=== PATIENT | male | born 1940 | race Caucasian/White ===

== ENCOUNTER → 2017-04-13 | Outpatient (CLI) | payer MEDICARE, OTHER ==
[2014-02-09 16:18] VITALS: BMI 31.9
[~2017-04-13] MED LIST: ABIR250T PO; ALBU8.5H IH; ALFU10TA9 PO; AMAN50SY PO; ASPI-879 PO; BICA50TA36 PO; BICA50TA39 PO; CALC-734 PO; CALC200T27 PO; CARB-127 PO; CART1TAB5 PO; CELE100C79 PO; CYAN1TAB68 PO; CYAN500T7 PO; DEN60I SUBQ; ESC10 PO; ESCI10TA8 PO; FLU180SY9 IM; FLU45SYR17 IM; FLUT1DIS28 IH; FLUT1DIS28 INH; FURO-45 PO; GLUC1TAB25 PO; IRON150C19 PO; KRIL1CAP22; KRIL1CAP22 PO; KRIL1CAP4 PO; LEU30I IM ONLY; LEUP3.753 IM; LUTE20CA11 PO; LYCO10CA2 PO; MAGN100T PO; MAGN250T34 PO; MOVE FREE ULTR1 EACH; MULT-1203 PO; MULT-820 PO; PNEI IJ; PNEU0.5D3 IM; PRE5 PO; SOY50CAP PO; ST.300CA17 PO; [UNRECOGNIZED DRUG - OTHER]; [UNRECOGNIZED DRUG - SUPPLY]
--- NOTE | 2017-04-13 11:33 | RADIOLOGY IMAGING REPORT ---
FACILITY: [facility] PATIENT NAME: Wilber Iglesias : 1940 MR: [id number] V: [id number] EXAM DATE: ORDERING PHYSICIAN: CASH BLACKBURN TECHNOLOGIST: Location: [facility] Patient: Wilber Iglesias : 1940 Visit/Account:[id number] Date of Sevice: 04/13/2017 SHOULDER MIN 2 VIEWS RIGHT HISTORY: Right shoulder pain. Fall. COMPARISON: None FINDINGS: Right shoulder: Mildly displaced fracture of the distal clavicle 3 cm from the AC joint. AC joint cruz s not appear involved. Glenohumeral joint is well aligned with moderate degenerative changes. Fractur es of at least the right anterior second and third ribs and posterior fourth and fifth ribs. The fift h rib is also fractured anteriorly. The third-fifth rib fractures are mildly displaced. IMPRESSION: 1. Mildly displaced fracture of the distal right clavicle without extension to the AC joint. 2. Fractures of at least the right second-fifth ribs. The third-fifth rib fractures are mildly displa pj. Please see separate rib x-ray report. Report Dictated By: Shane Hunter MD at 04/13/2017 11:23 AM Report E-Signed By: Shane Hunter MD at 04/13/2017 11:27 AM WSN:[id number]
--- NOTE | 2017-04-13 11:34 | RADIOLOGY IMAGING REPORT ---
FACILITY: [facility] PATIENT NAME: Wilber Iglesias : 1940 MR: [id number] V: [id number] EXAM DATE: ORDERING PHYSICIAN: CASH BLACKBURN TECHNOLOGIST: [place] [facility] [place]: Wilber Iglesias : 1940 Visit/Account:[id number] Date of Sevice: 04/13/2017 RIBS RIGHT HISTORY: right rib pain - trauma COMPARISON: None FINDINGS: Nondisplaced fracture of the anterior right second rib. Mildly displaced fractures of the a nterior right third rib and posterior right fourth and fifth ribs. Nondisplaced fracture of the anter ior right fifth rib. No pneumothorax, pleural effusion or pulmonary contusion. IMPRESSION: 1. Fractures of the right second-fifth ribs with several fractures mildly displaced. No pneumothorax. Report Dictated By: Shane Hunter MD at 04/13/2017 11:27 AM Report E-Signed By: Shane Hunter MD at 04/13/2017 11:30 AM WSN:[id number]
== END ==
LOC: RAD 10:19
PROVIDERS: ATTEND Nurse Practitioner Family
DX: S22.41XA Multiple fractures of ribs, right side, initial encounter for closed fracture (principal); S42.031A Displaced fracture of lateral end of right clavicle, initial encounter for closed fracture
CPT/HCPCS: 71100

== ENCOUNTER 2017-04-16 09:47 | Outpatient (RCR) | payer MEDICARE, OTHER ==
[2014-02-09 16:18] VITALS: Ht 172.7 cm; Wt 78.0 kg
[2017-01-24 11:04] VITALS: BP 116/73
[2017-01-24 11:40] LABS: PLATELET COUNT, AUTOMATED 176 K/uL (150-450)
--- NOTE | 2017-01-24 11:49 | ONC Progress Note - NP.Halsey ---
Patient History Date of Service Jan 24, 2017 Reason For Visit/HPI Patient is seen in the clinic today for follow-up of his metastatic prostate cancer. Patient is seen every 2 months with a PSA typically drawn prior the office visit. This was not done and I will have that drawn today. Patient also follows with Dr. Lobato and continues on Lupron injections. He patient believes he is scheduled next month. Patient continues on Lupron and Casodex and previously has completed Proveng. He continues to follow with Dr. Hunt for his neurological symptoms with a history of Parkinson's. He reports that he is frequently tired and fatigued which requires resting at least twice a day and he is still able to sleep at night. He has generalized aches in the shoulder and his feet. He has pain in his knee from a fall yesterday tripping over the threshold into his house. He did not follow with any provider and reports that he is feeling fine. He does continue with physical therapy at home. He also is the care provider for his . Problem List (1) History of Parkinson's disease (2) Malignant neoplasm of prostate (3) Tardive dyskinesia Oncology History The patient has known metastatic prostate cancer to bone. He was originally diagnosed in February of 2005 with Sarbjit 8 poorly differentiated malignancy and was given six months of Lupron with external beam radiation therapy at a dose of 7560 cGy. He developed bone metastases in 2009 and received palliation with radiation to the spine at 3750 cGy. He tolerated this well. He then was controlled with Lupron and Casodex starting in 2009. He developed an elevation of his PSA in July of 2015 and was started on Zytiga and prednisone. His PSA edita to 9 and then leveled off. It increased then in the summer of 2015 to 12.2 and he completed three treatments of Provenge. He continues on the Lupron and the Casodex. PSA continues to slowly rise and was at 16.4 on 01/10/2017, 14.10 on 12/12/2016 , and 12.9 on 10/17/2016. Medical History Family History: Cancer of spinal cord MOTHER, , Age:79 FH: leukemia BROTHER OR SISTER (Sister), , Age:30 Gout FATHER, , Age:83 Psychosocial History Social History Patient is and is the care provider of his Alcohol History Patient denies use Smoking History: Yes Smoking Status: Former Smoker Exposure to Second Hand Smoke?: No Medications and Allergies Active Scripts Escitalopram Oxalate (LEXAPRO) 10 Mg Tab, 1 TAB PO QDAY, #90 TAB 3 Refills Prov:MAN GAUTAM MD 05/01/16 Fluticasone/Salmeterol (ADVAIR 250-50 DISKUS) 1 Each Disk.w.dev, 1 PUFF INH BID , #3 DISK 3 Refills Prov:CASH BLACKBURN APRN 04/12/16 Albuterol Sulfate 90 Mcg/Act (PROAIR HFA 90 MCG/ACT) 8.5 Gm Hfa.aer.ad, 2 PUFF IH QID Y for WHEEZING, #1 INHALER 1 Refill Prov:CASH BLACKBURN APRN 01/12/16 [oxygen concetrator] No Conflict Check Prov:CASH BLACKBURN APRN 12/14/15 Reported Medications Cartilage/Collagen/Bor/Hyalur (Joint Health Tablet) 40 Mg-10 Mg-5 Mg-3.3 Mg Tablet, 40 MG PO DAILY 08/21/16 Iron Polysaccharides Complex (POLYSACCHARIDE IRON 150) 150 Mg Capsule, 27 MG PO DAILY, CAPSULE 08/21/16 Carbidopa/Levodopa (CARBIDOPA-LEVO 25-100 MG ODT) 1 Each Tab.rapdis, 1 EACH PO Q4-6H 06/27/16 Denosumab (PROLIA) 60 Mg/1 Ml Injs, 60 MG SUBQ DIRECTED 04/11/16 Leuprolide Acetate (LUPRON DEPOT) 3.75 Mg Syringekit, 3.75 MG IM DIRECTED 04/11/16 Lycopene (LYCOPENE) 10 Mg Capsule, 10 MG PO DAILY, CAPSULE 01/24/16 Bicalutamide (CASODEX) 50 Mg Tablet, 50 MG PO DAILY 01/24/16 Krill/Om-3/Dha/Epa/Phospho/Ast (Megared Lindsay-3 Krill Oil Sfgl) 1 Each Capsule, 1 CAPSULE PO QDAY 09/22/15 Multivitamin With Minerals (ONE DAILY COMPLETE) 1 Each Tablet, 1 EACH PO QDAY 09/22/15 Magnesium Oxide (MAGNESIUM) 250 Mg Tablet, 250 MG PO QDAY 09/22/15 Lutein (LUTEIN) 20 Mg Capsule, 20 MG PO QDAY, CAPSULE 09/22/15 Calcium Citrate (CALCIUM CITRATE) 200 Mg Tablet, 630 MG PO DAILY 08/25/15 Alfuzosin Hcl (ALFUZOSIN HCL) 10 Mg Tab.er.24h, 1 TAB PO QDAY, TAB 01/13/14 Allergies: Coded Allergies: No Known Drug Allergies (Unverified , 09/22/15) Review of System/Physical Exam Review of Systems All Systems Reviewed/Normal: Yes, Except as Noted Constitutional: Denies Fever/Chills/Sweating (no fever or chills noted with a cough that started 10 days ago.) Respiratory: Positive for Cough (reports a mild cough with symptoms starting approximately 10 days ago and is resolving.) Hematologic: Positive for Fatigue, Positive for Weakness Musculoskeletal: Positive for Muscle Pain, Positive for Joint Pain, Positive for Bone Pain, Positive for Other (generalized fatigue and noted bilateral hand tremors) Physical Exam Vital Signs Temperature: 97.1 Pulse: 86 BP Systolic: 116 BP Diastolic: 73 Respiratory Rate: 16 O2 SAT: 87 O2 Delivery: Room Air Height (inches) 68.00 Weight lb: 171 Weight oz: 6.0 Weight Kg (Alfredo): 77.56 Pain: 3 ECOG Score: 2 General: Stable, Well Developed, Well Nourished, Not In Acute Distress HEENT: No Trauma, No Conjunctivitis, No Icterus, No Mucositis, No Oral Thrush, No Sinus Tenderness Neck: Supple Lungs: Clear to Auscultation Heart: Regular Rate, Regular Rhythm Abdomen: Soft and Nontender, No Hepatosplenomegaly, No Masses Extremities: No Cyanosis, No Clubbing, No Edema, Other (bilateral hand tremors and finger pill-rolling with a history of Parkinson's) Lymphadenopathy: No Cervical Psychiatric: Mood appears normal, Affect appears normal Skin: No Skin Rashes, Bruising (small bruised area on his right knee, mild tenderness with palpation, patient experienced a fall yesterday) Diagnostic Studies Diagnostic Studies Laboratory CBC, CMP and PSA will be drawn today and are currently pending Assessment and Plan Assessment & Plan Patient is a pleasant 76-year-old gentleman with the followin. Metastatic prostate cancer on Provenge, Lupron and Casodex. He has finished the Provenge x 3 with a small response in his PSA, previously on 08/15 PSA was 10.7, and then increased to 12.9 on 10/17/2016, 14.10 on 2016, and 16.4 on 01/10/2017. Patient is scheduled to follow with Dr. Lobato later this month or in February and is due for Lupron. We will continue to monitor PSA. Patient is asymptomatic regarding any bone pain other then what is been normal for him. Recent bone scan was reviewed and reported to be without evidence of disease. There are no new concerns other then continued rising PSA. It is known that Provenge may take up to 6 or 8 months to respond. As long as patient continues to be asymptomatic and his other lab values are essentially unremarkable we will continue to monitor every 2 months with a PSA, CBC and a CMP. There is no need for further evaluation with a CT scan at this time but would be indicated if chemistry panel was abnormal . Labs are pending today. Patient will be notified with results. Patient will follow with Dr. Carballo in March which as previously scheduled with PSA, CBC and CMP drawn prior. 2. Chronic osteoarthritis. 3. Parkinsonism with tardive dyskinesia. Patient is following with Neurology. I personally spent a total of 20 minutes. Of that 20 minutes was counseling/ coordination of patient's care. See my note above for details. Copies to: CSAH BLACKBURN APRNP-C DREA MEYERP-BC, ONC Jan 24, 2017 11:49
[2017-02-13 10:04] LABS: PLATELET COUNT, AUTOMATED 171 K/uL (150-450)
[2017-03-13 10:07] VITALS: BP 75/75
[2017-03-13 10:12] LABS: PLATELET COUNT, AUTOMATED 191 K/uL (150-450)
[2017-03-26 11:02] VITALS: BP 115/67
--- NOTE | 2017-03-30 22:36 | ONCOLOGY FOLLOW UP NOTE ---
EVENT DATE: 03/26/2017 CHIEF COMPLAINT/REASON FOR VISIT Mr. Iglesias is a pleasant 76-year-old gentleman with metastatic prostate cancer, currently on Lupron and Casodex, previously on Provenge. HISTORY OF PRESENT ILLNESS Wilber returns. Overall he is doing well with a very slight and slow increase in his PSA. This is expected after Provenge considering the benefit with Provenge is extending survival intervals and slowing rate of change. He has been on Zytiga in the past and we could consider switching to enzalutamide in the future. He is not interested in chemotherapy and we discussed this in detail today including our options for chemotherapy. His biggest complaint today is a fall that he suffered. He does not believe he hit his head. This was approximately 48 hours ago. He fell on his right hand and right shoulder without hitting his head. He feels that his shoes got caught by something, leading him to fall. He does have known Parkinson's disease and continues to take carbidopa/levodopa for this. We discussed getting imaging, but he declines this as well. We have made an agreement that if he continues to have pain within one week he should call his primary care provider, and he agrees with this. No other new issues today. No new bone pain. We had imaging back in December and would like to get some new imaging in the spring. ONCOLOGY HISTORY The patient has known metastatic prostate cancer to bone. He was originally diagnosed in February of 2005 with Florence 8 poorly differentiated malignancy and was given six months of Lupron with external beam radiation therapy at a dose of 7560 cGy. He developed bone metastases in 2009 and received palliation with radiation to the spine at 3750 cGy. He tolerated this well. He then was controlled with Lupron and Casodex starting in 2009. He developed an elevation of his PSA in July of 2015 and was started on Zytiga and prednisone. His PSA edita to 9 and then leveled off. It increased then in the summer of 2015 to 12.2 and we made the decision in the fall to add Provenge. He completed his three treatments. He continues on the Lupron and the Casodex. PAST MEDICAL HISTORY 1. Metastatic prostate cancer. 2. Parkinsonism. 3. Tardive dyskinesia. 4. Osteoarthritis. SOCIAL HISTORY The patient is . He has one adult daughter here in [place]. FAMILY HISTORY Remarkable for sibling who from leukemia. REVIEW OF SYSTEMS CONSTITUTIONAL: No fevers, chills, weight change. HEENT: No headache or vision changes. NEUROLOGIC: Positive changes of parkinsonism. He does have a significant tremor. CARDIOVASCULAR: No chest pain, dyspnea on exertion or edema. RESPIRATORY: No shortness of breath, wheeze, cough. GASTROINTESTINAL: No nausea, vomiting. He had some nausea and vomiting with the Provenge, but this has resolved. GENITOURINARY: No dysuria or hematuria. MUSCULOSKELETAL: Positive generalized weakness, but no focal weakness. He does have arthralgias. Positive right hand and shoulder pain after the fall. Declines exam of this. ENDOCRINE: No heat or cold intolerance. PSYCHIATRIC: No anxiety or depression. SKIN: No bruising or rashes. The remainder of the 14-point review of systems is otherwise negative. PHYSICAL EXAMINATION VITAL SIGNS: Blood pressure 116/67, pulse 86, respiratory rate 16, temperature 97.1 Fahrenheit, oxygen saturation 90% on room air, weight 78 kg. Pain 6/10 due to the fall, fatigue 6/10 due to the fall. GENERAL: In stable condition, resting comfortably in the chair. The patient is guarding his right shoulder and refuses exam. It does appear to be in the joint and I do not believe he dislocated it. I think the most likely outcome is that he has injured his rotator cuff considering his symptoms are consistent with a supraspinatus strain on the right side,but cannot be definitive as the patient refuses exam. CARDIOVASCULAR: Regular rate and rhythm. LUNGS: Clear. ABDOMEN: Soft, nontender. MUSCULOSKELETAL: Chronic changes of tardive dyskinesia with significant tremor , about the same as previous visits and improved now that he is back on carbidopa/levodopa. EXTREMITIES: Without clubbing, cyanosis or edema. SKIN: Scattered bruises and lesions. He does have bruising of his right hand. The remainder of the physical exam is unremarkable. IMPRESSION AND PLAN Wilber is a very pleasant 76-year-old gentleman with the followin. Metastatic prostate cancer, having finished Provenge, currently on Lupron and Casodex. He has been on Zytiga in the past. I do not feel he is a candidate for chemotherapy, and he would decline it anyway after discussion today. His PSA is slowly rising with a low doubling time. Thus we will continue his current plan. We could utilize enzalutamide in the future if desired. I do think he is getting some benefit from the Provenge. I also believe that he will eventually succumb to his disease at some point, but we are trying to slow its rate of change. Would like to get imaging in the new year. 2. Chronic osteoarthritis. 3. Parkinsonism with tardive dyskinesia. 4. Recent fall. Patient agrees to seek medical care if the pain continues one week from now. Answered all of his questions today. Billing: Return visit level 4. Total time 30 minutes, counseling time 20. MTDD
[~2017-04-16] VITALS: Ht 172.7 cm; Wt 78.0 kg
[2017-04-16 10:05] LABS: PLATELET COUNT, AUTOMATED 209 K/uL (150-450)
== END 2017-04-23 ==
LOC: SPU 09:47
PROVIDERS: ATTEND Internal Medicine
DX: Z85.46 Personal history of malignant neoplasm of prostate (principal); Z85.830 Personal history of malignant neoplasm of bone; M19.90 Unspecified osteoarthritis, unspecified site; G20 Parkinson's disease; G24.01 Drug induced subacute dyskinesia; Z87.891 Personal history of nicotine dependence; Z79.899 Other long term (current) drug therapy; R53.83 Other fatigue; R53.1 Weakness; R05 Cough
CPT/HCPCS: 36415; 84153; 84402; 84403; 84443; 85025; G0463; 82040; 82247; 82310; 82374; 82435; 82565; 82947; 84075; 84132; 84155; 84295; 84450; 84460; 84520; 99212

== ENCOUNTER 2017-05-31 10:30 | Outpatient (RCR) | payer MEDICARE, OTHER ==
[2014-02-09 16:18] VITALS: BMI 31.9
--- NOTE | 2017-04-25 15:23 | PT INITIAL EVALUATION ---
MEDICAL DIAGNOSIS: R distal clavicle fx, R scapula fx of body and tip, rib fracture (anterior 2nd and 3rd and posterior 4th and 5) TREATMENT DIAGNOSIS: Same DATE OF ONSET: 04/01/17 SUBJECTIVE: Wilber Iglesias presents to physical therapy status post R distal clavicle fx, R scapular fx of body and tip, and rib fractures (anterior 2nd and 3rd and posterior 4th and 5) resulting from a fall prior to . He reports that he fell on his R side resulting in all of these fractures. He reports that his mobility over the years has been getting worse due to Parkinson and prostate cancer. He rates his current R side pain to be 3-4/10. He reports that the pain is better with lying down on his back or anything warm placed on the spots that are painful. He reports that the pain becomes worse with movement and anything cold over the points of pain. He reports that is currently having difficulty with dressing driving, and personal hygiene as a result of these injuries. Pain location is distal clavicle, posterior ribs and anterior ribs and described as . Pain scale is 4 on a ten point pain scale. REHAB PROBLEM LIST: Increased Pain Decreased ROM Decreased Strength Decreased Endurance Decreased Balance Decreased Function Decreased ADL's Decreased Mobility Decreased Gait PREVIOUS MEDICAL HISTORY: See EMR OCCUPATION: Retired OBJECTIVE: Posture: He demonstrated forward head, increased rounded shoulders, increased thoracic kyphosis, and decreased lumbar lordosis. ROM: PROM of R shoulder: flexion: 90 deg, IR: 65 deg, ER: 20 deg, abduction: 90 deg. Painful in all direction: empty end feels PROM of L shoulder: flexion: 170 deg, abduction: 145 deg, IR: 90 deg, ER: 65 deg. Strength: Did not test due to recent fractures Palpation: TTP: distal clavicle, anterior 2nd and 3rd ribs, and posterior 3-4th ribs. ASSESSMENT: Wilber will benefit from skilled physical therapy addressing the listed impairments to improve function and QOL. Short Term Goals 3 weeks: Pt will demonstrate full PROM with R shoulder in all directions as compared to his PROM of his L shoulder in all directions to improve function and QOL. 6 weeks: Pt will demonstrated full AAROM-AROM with R shoulder in all directions as compared to his PROM of his L shoulder in all directions to improve function and QOL. 6 weeks: Pt will demonstrate 4/5 or greater with R RTC and periscapular musculature to improve function and QOL. Patient's Goals improve range of motion and decrease pain PLAN: Patient to be seen for Manual Therapy/STM/MET Strengthening/condition Ice/Heat Range of Motion Spinal Stabilization Work Hardening/Cond Stretching Neuromuscular Re-ed Closed Chain Program Electrical Stim Posture/Body mechanics Gait Trg/Balance Trg Home Exercise Program Therapeutic Activities 2x/Week for 6 Weeks If you have any questions, comments, or concerns about this report or plan, please contact me at . Thank you, Grupo Buenrostro, PT, DPT MTDD
--- NOTE | 2017-05-25 17:23 | PT PLAN OF CARE ---
Physician: Steve Nicole MD Patient is being seen: 2x/week Therapist: Grupo Buenrostro, PT, DPT Medical Diagnosis: R distal clavicle fx, R scapula fx of body and tip, rib fracture (anterior 2nd/3rd and posterior 4th and 5th Treatment Diagnosis: Same Date of Onset: 04/01/17 Date of Initial Evaluation: 04/24/17 Date patient was last seen: 05/24/17 Number of treatments: 10 Number of cancellations/No shows: 0 INTERVENTIONS: Manual Therapy/STM/MET Strengthening/condition Ice/Heat Range of Motion Spinal Stabilization Work Hardening/Cond Stretching Neuromuscular Re-ed Closed Chain Program Electrical Stim Posture/Body mechanics Gait Trg/Balance Trg Home Exercise Program Therapeutic Activities GOALS: 3 weeks: Pt will demonstrate full PROM with R shoulder in all directions as compared to his PROM of his L shoulder in all directions to improve function and QOL. Progressing; not met 6 weeks: Pt will demonstrated full AAROM-AROM with R shoulder in all directions as compared to his PROM of his L shoulder in all directions to improve function and QOL. Progressing; not met 6 weeks: Pt will demonstrate 4/5 or greater with R RTC and periscapular musculature to improve function and QOL. Progressing; not met PATIENT'S GOAL: improve range of motion and decrease pain: progressing; not met Status of Patient's Goals: Not Met; progressing Patient Compliance: Good Prognosis: Good Reasons for continuing therapy: This is a progress note for Wilber Iglesias. Wilber reports that he is doing well. He reports that he feels like his R shoulder is getting better and is able to do more with it than he could a few weeks ago. He rates his pain to be 1-2/10. He is progressing with improved R shoulder PROM-AROM, however, he continues to have empty end feels in all directions. We would like to continue PT to continue to improve PROM-AROM and then improve strength to return him to prior level of function. Posture: He demonstrated forward head, increased rounded shoulders, increased thoracic kyphosis, and decreased lumbar lordosis. ROM: PROM of R shoulder: scaption: 110 degrees, flexion: 110 deg, IR: 90 deg, ER : 55 deg, abduction: 105 deg. Painful in all direction: empty end feels PROM of L shoulder: flexion: 170 deg, abduction: 145 deg, IR: 90 deg, ER: 65 deg. Strength: Did not test due to recent fractures Palpation: TTP: distal clavicle, anterior 2nd and 3rd ribs, and posterior 3-4th ribs. Mobility: Independent If you have any questions, please contact me at [phone]. Thank you, Grupo Buenrostro, PT, DPT MTDD
[~2017-05-31 10:30] MED LIST changes: +AMA100 PO
--- NOTE | 2017-05-31 14:16 | PT PLAN OF CARE ---
Physician: Steve Nicole MD Patient is being seen: 2x/week Therapist: Grupo Buenrostro, PT, DPT Medical Diagnosis: R distal clavicle fx, R scapula fx of body and tip, rib fracture (anterior Treatment Diagnosis: Same Date of Onset: 04/01/17 Date of Initial Evaluation: 04/24/17 Date patient was last seen: 05/31/17 Number of treatments: 12 Number of cancellations/No shows: 0 INTERVENTIONS: Manual Therapy/STM/MET Strengthening/condition Ice/Heat Range of Motion Spinal Stabilization Work Hardening/Cond Stretching Neuromuscular Re-ed Closed Chain Program Electrical Stim Posture/Body mechanics Gait Trg/Balance Trg Home Exercise Program Therapeutic Activities GOALS: 3 weeks: Pt will demonstrate full PROM with R shoulder in all directions as compared to his PROM of his L shoulder in all directions to improve function and QOL. Progressing; not met 6 weeks: Pt will demonstrated full AAROM-AROM with R shoulder in all directions as compared to his PROM of his L shoulder in all directions to improve function and QOL. Progressing; not met 6 weeks: Pt will demonstrate 4/5 or greater with R RTC and periscapular musculature to improve function and QOL. Progressing; not met PATIENT'S GOAL: improve range of motion and decrease pain: progressing; not met Status of Patient's Goals: Not Met; progressing Patient Compliance: Good Prognosis: Good Reasons for continuing therapy: This is a discharge note for Wilber Iglesias. Wilber reports that he is doing well. He reports that he feels like his R shoulder is getting better and is able to do more with it than he could a few weeks ago. He rates his pain to be 1-2/10. He is progressing with improved R shoulder PROM-AROM, however, he continues to have empty end feels in all directions. We would like to continue PT to continue to improve PROM-AROM and then improve strength to return him to prior level of function. However, he reports that he would like to perform his recovery of function at home with his current home exercise program. He demonstrates independence with his home exercise program. As a result, he will be discharged from formal PT to [facility]. Posture: He demonstrated forward head, increased rounded shoulders, increased thoracic kyphosis, and decreased lumbar lordosis. ROM: PROM of R shoulder: scaption: 120 degrees, flexion: 120 deg, IR: 90 deg, ER : 55 deg, abduction: 110 deg. Painful in all direction: empty end feels PROM of L shoulder: flexion: 170 deg, abduction: 145 deg, IR: 90 deg, ER: 65 deg. Strength: Did not test due to recent fractures Palpation: TTP: distal clavicle, anterior 2nd and 3rd ribs, and posterior 3-4th ribs. Mobility: Independent If you have any questions, please contact me at [phone]. Thank you, Grupo Buenrostro, PT, DPT MTDD
== END 2017-05-31 18:00 | disposition home or self-care (01) ==
LOC: PT 10:30
PROVIDERS: ATTEND Orthopaedic Surgery
DX: S82.031A Displaced transverse fracture of right patella, initial encounter for closed fracture (principal); S42.111A Displaced fracture of body of scapula, right shoulder, initial encounter for closed fracture; S22.41XA Multiple fractures of ribs, right side, initial encounter for closed fracture; G20 Parkinson's disease; C61 Malignant neoplasm of prostate; W19.XXXA Unspecified fall, initial encounter
CPT/HCPCS: 97010; 97110; 97140; 97163; G0283

== ENCOUNTER 2017-06-11 10:24 | Outpatient (RCR) | payer MEDICARE, OTHER ==
[2014-02-09 16:18] VITALS: Wt 75.6 kg
[2017-06-04 11:24] LABS: PLATELET COUNT, AUTOMATED 198 K/uL (150-450)
--- NOTE | 2017-06-07 11:38 | RADIOLOGY IMAGING REPORT ---
FACILITY: [facility] [place] PATIENT NAME: Wilber Iglesias : 1940 MR: [id number] V: [id number] EXAM DATE: ORDERING PHYSICIAN: MAN GAUTAM TECHNOLOGIST: Location: [facility] Patient: Wilber Iglesias : 1940 Visit/Account:[id number] Date of Sevice: 06/07/2017 CHEST/AB/PELV W/WO CONTRAST HISTORY: Prostate cancer ADDITIONAL HISTORY: None. TECHNIQUE: Pre and post administration of IV contrast axial images acquired through the chest abdome n and pelvis during the portal venous phase. Coronal and sagittal reformatting was also performed. D ose Lowering Technique One of the following dose optimization techniques was utilized in the performance of this exam: Autom ated exposure control; adjustment of the mA and/or kV according to the patient's size; or use of an i terative reconstruction technique. Specific details can be referenced in the facility's radiology C T exam operational policy. CONTRAST: 75 mL Isovue-370 COMPARISON: CTA chest September 22, [address] abdomen pelvis August 01, 2011 FINDINGS: CHEST: Lungs/Pleura: Small amount of airspace consolidation in the lateral left lower lobe Mediastinum/lymph nodes: Negative. Heart/vessels: There are mild calcifications within the thoracic aorta and branch vessels including the coronary arteries Bones/soft tissues: No aggressive appearing bone lesions are seen. There are marked severe degenera tive changes of the right shoulder joint. There is a sclerotic density in the right femoral neck sta ble when compared to the prior study from 2011 ABDOMEN AND PELVIS: Hepatobiliary: There are postsurgical changes from a cholecystectomy. There appears to been a parti al hepatic resection Spleen: Negative. Pancreas: Negative. Adrenals: Negative. Kidneys ureters and bladder: There is a 5 mm nonobstructing calculus mid pole the right kidney the pr eviously noted 2.1 cm cortical hyperdensity with adjacent peripheral calcification projecting from th e lateral aspect of the upper pole the left kidney appears smaller. The bladder wall is mildly thick ened Genitalia: Prostate gland is mildly enlarged impinging upon the floor the urinary bladder and appears heterogeneous GI: There is diverticulosis left-sided colon although no CT evidence of acute diverticulitis Vessels/spaces/nodes: Mild to moderate vascular calcifications about the chest abdomen pelvis and br anch vessels Bones/soft tissues: There are spondylotic changes of the thoracolumbar spine. This sclerotic densit y in the right femoral neck appears stable Additional findings: None pertinent. IMPRESSION: There is a small amount of airspace consolidation the lower left lateral thorax which may represent a n area of scarring or atelectasis. There is been a partial hepatic resection Postsurgical changes from a cholecystectomy Nonobstructing right-sided nephrolithiasis Left renal cyst appears smaller Bladder wall is mildly thickened the prostate gland is mildly enlarged impinging upon the floor the u rinary bladder appears heterogeneous. Diverticulosis left-sided colon although no CT evidence of acute diverticulitis Report Dictated By: Elzbieta Gordon MD at 06/07/2017 10:24 AM Report E-Signed By: Elzbieta Gordon MD at 06/07/2017 11:34 AM WSN:[email or web address]
--- NOTE | 2017-06-07 14:33 | RADIOLOGY IMAGING REPORT ---
FACILITY: [facility] PATIENT NAME: Wilber Iglesias : 1940 MR: [id number] V: [id number] EXAM DATE: ORDERING PHYSICIAN: MAN GAUTAM TECHNOLOGIST: Location: [facility] Patient: Wilber Iglesias : 1940 Visit/Account:[id number] Date of Sevice: 06/07/2017 WHOLE BODY BONE SCAN HISTORY: Prostate cancer TECHNIQUE: 23.9 mCi technetium 99m HDP was injected intravenously. Delayed anterior and posterior wh ole body gamma camera images were obtained. Additional gamma camera images: Right and left lateral skull COMPARISON: December 12, 2016 FINDINGS: Bone radiotracer activity: There is increased isotope uptake along the anterior aspect of numerous r ight-sided ribs consistent with the clinical history of recent trauma. Degenerative type uptake is a lso noted at the right shoulder which is slightly increased over the distal right clavicle which coul d be related to the recent trauma. Degenerative type uptake also noted at the knees and feet right s ternoclavicular joint and wrists. Degenerative uptake also noted in the cervical spine and thoracic spine similar to the prior examination Extraosseous radiotracer activity: Unremarkable. Renal and urinary collecting system activity: Unremarkable. IMPRESSION: Increased isotope uptake over numerous anterior right-sided ribs and the distal right clavicle consis tent with the clinical history of recent trauma Multifocal areas of degenerative type uptake noted as described above No scintigraphic evidence of osseous metastases Report Dictated By: Elzbieta Gordon MD at 06/07/2017 2:25 PM Report E-Signed By: Elzbieta Gordon MD at 06/07/2017 2:28 PM WSN:[email or web address]
[~2017-06-11 10:24] MED LIST changes: +IOPAMIDOL 76% 75 ML INFUS BTL 75 ML ONE
[2017-06-11 10:25] VITALS: BP 123/74
--- NOTE | 2017-06-13 06:01 | [facility] ONCOLOGY NOTE ---
EVENT DATE: June 11, 2017 CHIEF COMPLAINT/REASON FOR VISIT The patient is a pleasant 76-year-old gentleman with metastatic prostate cancer , currently on Lupron and Casodex, previously on Provenge, here for followup. HISTORY OF PRESENT ILLNESS The patient returns. Overall he is doing well. We have a very slow rise in his PSA in general, although it went down in the last month. This is expected after Provenge, considering the benefit with this extends survival, but over time. He has been on Zytiga in the past, and we could consider enzalutamide in the future. He is not interested in chemotherapy, and I agree with this. Our biggest issue today is his continued falls. He had a fall when I saw him back in March, and then at least two this year as well, including one requiring an ER visit. We discussed assisted living, but he feels that he has adequate help with his daughter and two other hired helpers. They are not there 30/10, of course. He blames his fall due to him rushing and his Parkinson' s disease. He continues to take his carbidopa/levodopa for the Parkinson's. No other new issues today. No new pain other than pain from the fall. We had imaging back in December and would likely get imaging now as needed. His imaging scan on June 07, 2017 showed trauma as well as metastatic disease, but no significant change. ONCOLOGY HISTORY The patient has known metastatic prostate cancer to bone. He was originally diagnosed in February of 2005 with Sarbjit 8 poorly differentiated malignancy and was given six months of Lupron with external beam radiation therapy at a dose of 7560 cGy. He developed bone metastases in 2009 and received palliation with radiation to the spine at 3750 cGy. He tolerated this well. He then was controlled with Lupron and Casodex starting in 2009. He developed an elevation of his PSA in July of 2015 and was started on Zytiga and prednisone. His PSA edita to 9 and then leveled off. It increased then in the summer of 2015 to 12.2 and we made the decision in the fall to add Provenge. He completed his three treatments. He continues on the Lupron and the Casodex. PAST MEDICAL HISTORY 1. Prostate cancer, metastatic. 2. Parkinsonism. 3. Tardive dyskinesia. 4. Osteoarthritis. SOCIAL HISTORY The patient is and has presented by himself today. He has one adult daughter here in [place]. FAMILY HISTORY Remarkable for a sibling who from leukemia, otherwise negative. REVIEW OF SYSTEMS CONSTITUTIONAL: No fevers, chills, significant weight change. HEENT: No headache or vision changes. NEUROLOGIC: Positive changes of Parkinson's with a resting tremor. CARDIOVASCULAR: No chest pain, dyspnea on exertion or edema. RESPIRATORY: No shortness of breath, wheeze, cough. GASTROINTESTINAL: No nausea, vomiting, diarrhea or constipation. GENITOURINARY: No dysuria or hematuria. MUSCULOSKELETAL: No weakness or joint pain. PSYCHIATRIC: No anxiety or depression. ENDOCRINE: No heat or cold intolerance. The remainder of the 14-point review of systems is otherwise negative. PHYSICAL EXAMINATION VITAL SIGNS: Blood pressure 123/74, pulse 83, respiratory rate 16, temperature 96.5 Fahrenheit, oxygen saturation 90% on room air, weight 75.6 kg. Pain 0/10, fatigue 5/10. GENERAL: Stable condition, resting comfortably in the chair. T HEENT: Normocephalic, atraumatic. MUSCULOSKELETAL: Patient has pain in his right shoulder where he had the recent fall. He had pain in his shoulder two months ago as well after a similar fall. CARDIOVASCULAR: Regular rate and rhythm. LUNGS: Clear. ABDOMEN: Soft, nontender. EXTREMITIES: No clubbing, cyanosis or edema. NEUROLOGIC: Patient does have the tremor as well as tardive dyskinesia, better than it was when he was off the carbidopa/levodopa. Remainder of physical exam otherwise unremarkable. IMPRESSION AND PLAN Wilber is a very pleasant 76-year-old gentleman with the followin. Metastatic prostate cancer, having finished Provenge, currently on Lupron and Casodex. He has been on Zytiga in the past. I do not feel he is a candidate for chemotherapy, and he would decline it anyway. His PSA has a very slow doubling time on this current therapy. We could utilize enzalutamide in the future if needed, and I do think he is still getting some benefit from the Provenge. Imaging done now, and we will get it only as needed. 2. Chronic osteoarthritis. 3. Parkinsonism with tardive dyskinesia on carbidopa/levodopa. 4. Recent falls. I had a detailed discussion today about my concerns with his falls. We discussed an assisted living, but he would not like to pursue this. Billing: Return visit level 4. Total time 30 minutes, counseling time 20. MTDD
[2017-06-26] MEDS ORDERED: CHOL10005 PO (16:44)
[2017-07-18] MEDS ORDERED: CELE100C79 PO (16:30)
[2017-07-27] MEDS ORDERED: SINCR502 PO (09:44)
[2017-07-27] MEDS ORDERED: CELE100C79 PO (09:47)
[2017-07-27] MEDS ORDERED: FLUT1DIS28 INH (09:47)
== END 2017-08-30 ==
LOC: ONC 10:24
PROVIDERS: ATTEND Internal Medicine
DX: C61 Malignant neoplasm of prostate (principal); C79.51 Secondary malignant neoplasm of bone; M19.90 Unspecified osteoarthritis, unspecified site; G20 Parkinson's disease
CPT/HCPCS: 36415; 84153; 85025; G0463; 71270; 72194; 74170; 74178; 78306; 82040; 82247; 82310; 82374; 82435; 82565; 82947; 84075; 84132; 84155; 84295; 84450; 84460; 84520; 99212; A9503; Q9967

== ENCOUNTER 2017-06-26 13:21 | Outpatient (RCR) | payer MEDICARE, OTHER ==
[2014-02-09 16:18] VITALS: BMI 31.9
[~2017-06-26 13:21] MED LIST changes: -IOPAMIDOL 76% 75 ML INFUS BTL 75 ML ONE
[2017-06-26] MEDS ORDERED: CHOL10005 PO (16:44)
== END 2017-06-28 14:49 | disposition home or self-care (01) ==
LOC: RAON 13:21
PROVIDERS: ATTEND Radiology Radiation Oncology
DX: C61 Malignant neoplasm of prostate (principal); C79.51 Secondary malignant neoplasm of bone; Z92.3 Personal history of irradiation; Z79.899 Other long term (current) drug therapy; Z87.891 Personal history of nicotine dependence
CPT/HCPCS: 99212

== ENCOUNTER → 2017-08-30 | Outpatient (CLI) | payer MEDICARE, OTHER ==
[2014-02-09 16:18] VITALS: BMI 31.9
[~2017-08-30] MED LIST changes: +CHOL10005 PO; +SINCR502 PO
[2017-08-30 10:57] LABS: PLATELET COUNT, AUTOMATED 188 K/uL (150-450)
[2017-08-30 11:21] LABS: LDL CHOLESTEROL 59 mg/dl
== END ==
LOC: LAB 10:19
PROVIDERS: ATTEND Nurse Practitioner Family
DX: E78.5 Hyperlipidemia, unspecified (principal); G20 Parkinson's disease; M81.0 Age-related osteoporosis without current pathological fracture
CPT/HCPCS: 36415; 82040; 82247; 82306; 82310; 82374; 82435; 82465; 82565; 82947; 83718; 84075; 84132; 84155; 84295; 84443; 84450; 84460; 84478; 84520; 85025

== ENCOUNTER 2018-01-15 15:00 | Outpatient (RCR) | payer MEDICARE, OTHER ==
[2014-02-09 16:18] VITALS: BMI 31.9
[~2018-01-15 15:00] MED LIST changes: +BICA50TA13 PO; -BICA50TA36 PO; -BICA50TA39 PO; +BICA50TA41 PO; +ENZA40CA PO
[2018-04-08] MEDS ORDERED: CELE100C79 PO (12:03)
[2018-04-15] MEDS ORDERED: PRED-1 PO (10:48)
[2018-04-15] MEDS ORDERED: ESC10 PO (10:58)
== END 2018-04-14 ==
LOC: RAON 15:00
PROVIDERS: ATTEND Radiology Radiation Oncology
DX: Z85.46 Personal history of malignant neoplasm of prostate (principal); Z85.830 Personal history of malignant neoplasm of bone; Z92.3 Personal history of irradiation; Z79.899 Other long term (current) drug therapy
CPT/HCPCS: 99212

== ENCOUNTER 2018-02-14 10:00 | Outpatient (RCR) | payer MEDICARE, OTHER ==
[2014-02-09 16:18] VITALS: Wt 68.8 kg
--- NOTE | 2018-01-01 21:51 | Pharmacy Note ---
Pharmacy Note Note: Clinical Pharmacist Note: Oral Chemotherapy Education Visit Date: 01/01/18 Chemotherapy Regimen: Enzalutamide (Xtandi) Patient Start Date: 12/25/17 This regimen includes: Enzalutamide 160mg (4 x 40mg capsules) po daily until progression or toxicity The schedule of treatment administration was explained in detail to the patient in regards to lab visits, timing and proper administration of oral chemotherapy. Pt was taking 4 capsules per day, but 1 capsule every three hours. Educated on proper administration of chemotherapy as one dose (4 capsules) once per day. Discussed lab frequency and potential need for dose adjustments. Patient's diagnosis, treatment plan, and intent of treatment along with goals a re outlined on the signed consent form, that was reviewed and signed at the end of this appointment. The goal is palliative/maintenance (without cure). The potential for drug/drug interaction and drug/food interactions were explained to the patient. Enzalutamide has many drug interactions and the patient was instructed to report any new medications to the office. A medication reconciliation was reviewed by the pharmacist today. We have also discussed the potential for long and short term toxicities of this oral chemotherapy including, but not limited to the toxicities outlined below: -Low WBCs or neutropenia (15%): Patient may experience bone marrow toxicity that would increase their risk for infection. Patient is aware to look for signs and symptoms of infection (e.g. fever of higher than 100.4F, chills, sore throat, etc.) and knows what number to call and when to contact the clinic. Advised patient of things they can do such as wash hands with soap and water often, avoid people who are sick, and avoid crowds during times of low blood counts (typically 7-10 days post chemotherapy). -Low platelet counts or thrombocytopenia (6%): Patient may experience low platelets which can lead to increased risk of bleeding, easy bruising, black or bloody stools, or small red or purple spots on the skin. Platelets help blood to clot and if your platelets are low enough, bleeding may not stop after a few minutes. Excessive bleeding or bruising, red spots on your skin or new onset headaches require a phone call to the clinic. - Fatigue (feeling tired): Some patients may experience fatigue, or feel tired, weak, low energy, drained or exhausted. You will experience fatigue after chemotherapy, but the amounts for each person and chemotherapy will differ. Advised patient to stay active as much as they can with light exercise, take short naps if needed, get a restful night of sleep, and eat a well-balanced diet. Call the clinic if you are unable to get out of bed or do typical daily activities, have shortness of breath, or have trouble walking small distances. -Nausea or vomiting: May experience some level of nausea (feeling queasy or si ck to your stomach) or vomiting. Advised patient to drink plenty of fluids, eat several small meals throughout the day, eat bland easy to digest foods, and speak to our social work therapist if they have questions. Call the clinic if the nausea or vomiting is not eased by your medications and lasts 12 hours or longer, or if unable to eat or drink, or keep medicines down. - Appetite changes (eating less or more): You may experience a decrease or increase in your appetite that might last a day, weeks or months. Advised patient to set a schedule for eating and drink high protein drinks to maintain calories. Ask your doctor or nurse for a social work therapist consult to help manage your appetite changes or if you have concerns about your appetite changes. Contact the clinic if you notice a change in weight and if you are unable to take in more than a few bites of food or sips of liquid at mealtimes. Favorite foods may also taste different or may not be pleasing. -Arthralgias/ musculoskeletal pain: Patient may experience joint pains and aching in arms and legs, some patients report back pain. Instructed to contact our clinic if these symptoms become intolerable. -Cardiac Toxicities: Patient may experience Hypertension, ischemic heart disease and may increase risk of cardiovascular disease. Monitor for signs and symptoms of ischemic heart disease and increased blood pressure. -Fractures: Falls and fractures have occurred in patients receiving enzalutamide. The incidence of falls and fractures was higher in patients who r eceived enzalutamide. Routine assessment of bone density and osteoporosis treatment with bone-modifying agents were not performed in studies. Evaluate fall and fracture risk. Monitor and manage fracture risk according to established treatment guidelines; consider the use of bone-modifying agents to prevent falls and fractures. - Seizures: Seizures were observed in patients on enzalutamide from 13 days to 20 months after starting treatment. Patient informed of seizure risk and medications reviewed for drugs that lower the seizure threshold. -Other Toxicities: Edema, hot flashes, weight loss, diarrhea, constipation, and nausea Patient was given the Standard Chemotherapy Education Binder with appropriate phone numbers and we reviewed symptoms that would prompt a call to the clinic. Upcoming appointments were discussed and patient knows to follow up at the front of house manager to get print outs of their schedule and the processes to change/cancel an appointment. Consent was reviewed with the patient and signed in my presence. The treating physician will review and sign the consent. Allergies were reviewed: NKDA At the end of this discussion, the patient and his verbalized understanding of the provided education and information and all of their questions were answered to their satisfaction. Patient and his know how to reach me if further questions or concerns come up. Time spent with the patient: 60 minutes, with all60 minutes being spent counseling on the detailed information above. Lainey Cleveland, PharmD, [facility] Jan 01, 2018 21:51
[2018-01-09 10:32] VITALS: BP 100/65
[2018-01-09 10:46] LABS: PLATELET COUNT, AUTOMATED 195 K/uL (150-450)
[2018-01-14 10:31] VITALS: BP 115/71
--- NOTE | 2018-01-15 16:01 | ONCOLOGY FOLLOW UP NOTE ---
EVENT DATE: January 14, 2018 CHIEF COMPLAINT/REASON FOR VISIT Mr. Iglesias is a pleasant, 77-year-old gentleman with metastatic prostate cancer, currently on Lupron, Casodex, and enzalutamide with previous treatment on Provenge, who is here for followup. HISTORY OF PRESENT ILLNESS Wilber returns. Overall, he is doing well, but his Parkinson disease and multiple falls continue to be an issue. I stressed to him that he needs to use his cane more frequently. He is rarely using it. For example, it is in the car today. He has had multiple falls since the last visit in November. I think this is the most pressing issue for him. He is tolerating the first week of enzalutamide without major issue. He was recommended to start in November, but did not begin until early January 2018. He is to continue the Lupron and Casodex. Sees Dr. Lobato with Urology regularly and has followup later this month. Other than increased tinnitus, he notes no increased side effects. Multiple side effects listed for this medication Mr Iglesias already has, but he has seen no worsening of them to date. It has only been one week, though. Will continue to follow him every four to six weeks on this new therapy right now. Will check his PSA at that time, too. The patient also continues to note increased nocturia and approximately eight to 10 voiding episodes during the day. He may benefit from Dr. Lobato's evaluation later this month to consider medication or procedure to open up the prostate to allow better urinary drainage. I defer completely to Dr. Lobato on that. ONCOLOGY HISTORY The patient has known metastatic prostate cancer to bone. He was originally diagnosed in February 2005 with Sarbjit 8 poorly differentiated malignancy and was given six months of Lupron with external beam radiation therapy at a dose of 7560 cGy. He developed bone metastases in 2009 and received palliation with radiation to the spine at 3750 cGy. He tolerated this well. He then was controlled with Lupron and Casodex starting in 2009. He developed an elevation of his PSA in July 2015 and was started on Zytiga and prednisone. His PSA edita to 9 and then leveled off. It increased then in the summer of 2015 to 12.2, and we made the decision in the fall to add Provenge. He completed his three treatments. He continues on the Lupron and the Casodex. Decision to add Xtandi November 2017. PAST MEDICAL HISTORY 1. Prostate cancer, metastatic. 2. Parkinsonism. 3. Tardive dyskinesia. 4. Osteoarthritis. SOCIAL HISTORY The patient is and has presented by himself today. He has one adult daughter here in [place]. FAMILY HISTORY Remarkable for a sibling who from leukemia, otherwise negative. REVIEW OF SYSTEMS CONSTITUTIONAL: No fevers, chills, significant weight change. Multiple falls, unfortunately, believed to be related to Parkinson's. No increase since starting enzalutamide. HEENT: No headache or vision changes. SKIN: The patient does have some bruising noted, mostly on the right side including on his hand. NEUROLOGIC: Positive changes of Parkinson's with a resting tremor. CARDIOVASCULAR: No chest pain, dyspnea on exertion, or edema. RESPIRATORY: No shortness of breath, wheeze, cough. GASTROINTESTINAL: No nausea, vomiting. GENITOURINARY: No dysuria. Positive nocturia and multiple episodes during the day of frequent voiding. No hematuria. MUSCULOSKELETAL: Positive right shoulder fracture in March 2017 with a repeat fall in the summer of 2017. He states that this has been x-rayed and is not healing normally, though will be observed. PSYCHIATRIC: No anxiety or depression. ENDOCRINE: No heat or cold intolerance. Remainder of the 14-point review of systems otherwise negative. PHYSICAL EXAMINATION VITAL SIGNS: Blood pressure 115/71, pulse 84, respiratory rate 16, temperature 97.3 Fahrenheit, oxygen saturation 90% on room air, weight 68.8 kg. Pain zero/10. Fatigue 3/10. GENERAL: Stable condition, resting comfortably in the chair. HEENT: Normocephalic, atraumatic. MUSCULOSKELETAL: Patient has right shoulder pain and some frozen shoulder effect. He has fallen multiple times on that. Does not have his cane with him today, and I stressed the importance of having it. CARDIOVASCULAR: Regular rate and rhythm. LUNGS: Clear. ABDOMEN: Soft, nontender. EXTREMITIES: No clubbing, cyanosis, or edema. NEUROLOGIC: He does continue to have tardive dyskinesia as well as a resting tremor. Remainder of physical exam otherwise unremarkable. IMPRESSION AND PLAN Mr. Iglesias is a pleasant 77-year-old gentleman with the followin. Metastatic prostate cancer, having finished Provenge, currently on Lupron, Casodex, and enzalutamide. He has been on Zytiga in the past. He is not a candidate for chemotherapy and stresses that he would decline it anyway. His PSA, fortunately, has a very slow doubling time, although it is up to 30, and that is why we added the enzalutamide. He has taken it for one week with minimal side effects. He believes his tinnitus has been slightly worse, but this is tolerable. I believe the benefits outweigh the risks, and we will continue. 2. Chronic osteoarthritis. 3. Parkinsonism, on carbidopa/levodopa. Should continue. 4. Recent falls. Stressed the importance of using his cane regularly. He states that he will do this. He is the primary caregiver of his , and I worry that if he has more falls, he may have a major event or not be able to stay at home. I answered all of his questions today. BILLING Return visit level 4. Total time 30 minutes, counseling time 20. MTDD
[2018-02-11 09:49] VITALS: BP 100/68
[2018-02-11 10:12] LABS: PLATELET COUNT, AUTOMATED 216 K/uL (150-450)
[~2018-02-14 10:00] MED LIST changes: +INFLUENZA VIRUS VAC 0.5ML SYR IM ONLY ONE
[2018-02-14 10:09] VITALS: BP 111/72
--- NOTE | 2018-02-16 19:31 | ONCOLOGY FOLLOW UP NOTE ---
EVENT DATE: February 14, 2018 CHIEF COMPLAINT Followup for metastatic prostate cancer. HISTORY OF PRESENT ILLNESS Patient is a 77-year-old male who was seen today in one month followup for metastatic prostate cancer. He has an extensive history and has received multiple treatments but currently is on Lupron, Casodex and enzalutamide. Enzalutamide was added on January 14, 2018 due to an increased PSA. Overall, he is doing fairly well. He does complain of some urinary frequency and dribbling. He has diarrhea alternating with constipation, more on the diarrhea side. He has had recent falls but admits to not using his cane routinely. He denies any specific dizziness. He fell several days ago and has a bruised right elbow with skin tear. He also has decreased range of motion in his right shoulder. He has a followup appointment with Dr. Lobato next week for his Lupron injection. He is managing fairly well. His is also somewhat ill but he has a deliverer pharmacy that comes to their home four days a week and a "ranch girl" two days a week. He received a flu vaccine in January 2018. ONCOLOGY HISTORY The patient has known metastatic prostate cancer to bone. He was originally diagnosed in February 2005 with [place] 8 poorly differentiated malignancy and was given six months of Lupron with external beam radiation therapy at a dose of 7560 cGy. He developed bone metastases in 2009 and received palliation with radiation to the spine at 3750 cGy. He tolerated this well. He then was controlled with Lupron and Casodex starting in 2009. He developed an elevation of his PSA in July 2015 and was started on Zytiga and prednisone. His PSA edita to 9 and then leveled off. It increased then in the summer of 2015 to 12.2, and Provenge was added in the fall of 2015. He completed his three treatments. He continues on Lupron and the Casodex. Xtandi was added on January 14, 2018 due to increasing PSA. PAST MEDICAL HISTORY 1. Prostate cancer, metastatic. 2. Parkinsonism. 3. Tardive dyskinesia. 4. Osteoarthritis. SOCIAL HISTORY The patient is and has presented by himself today. He has one adult daughter here in [place]. FAMILY HISTORY Remarkable for a sibling who from leukemia, otherwise negative. MEDICATIONS 1. Enzalutamide 40 mg four capsules daily. 2. Advair. 3. Carbidopa/levodopa. 4. Vitamin D3. 5. Lexapro 10 mg daily. 6. Joint Health tablet. 7. Lupron under the direction of Dr. Lobato. 8. Casodex 50 mg daily. 9. Mag Oxide. ALLERGIES No known drug allergies. REVIEW OF SYSTEMS A 12-point review of systems is performed and is negative except as stated above. PHYSICAL EXAMINATION VITAL SIGNS: Weight 68.8 kg, BP 111/72, P 84, R 16, temperature 97.4, O2 sat 94%. GENERAL: Patient is a well-developed, slightly frail, elderly male in acute distress. HEENT: Atraumatic, normocephalic. Eyes: Sclerae, anicteric. Mouth: Moist mucous membranes without lesion. NECK: Supple. No adenopathy. LUNGS: Clear bilaterally. CARDIOVASCULAR: Heart rate regular, 84 per minute without murmur, S3 or S4. ABDOMEN: Soft, nontender with active bowel sounds. EXTREMITIES: No pedal edema. He does have decreased range of motion in his right shoulder. SKIN: Bruising noted on forearms with a skin tear on the right elbow after recent fall. NEUROLOGIC: Nonfocal. LABORATORY CBC on February 11, 2018 showed a WBC of 4.6, hemoglobin 13.6, hematocrit 40.1, platelets 216,000. CMP was within normal limits. PSA has decreased from 31.1 in January to 22.4 today. IMPRESSION AND PLAN The patient is a 77-year-old male being followed for metastatic prostate cancer. 1. Metastatic prostate cancer. He completed therapy with Provenge. He is currently on Lupron, Casodex and recently started enzalutamide. Thankfully, PSA has decreased from 31.1 to 22.4. He will continue current treatment. 2. Follow up with Dr. Lobato next week for Lupron. 3. Recent falls. He is not using his cane routinely and we discussed the importance of this. He had a recent fall and bruised his right elbow with a skin tear. He feels he is doing fairly well. He denies any dizziness which could be associated with the enzalutamide. 4. Osteoarthritis, chronic. 5. Parkinsonism,. He continued on carbidopa/levodopa. 6. Follow up for lab on April 11, 2018. Follow up with Dr. Hidalgo on April 15, 2018 or earlier if there is a problem. [facility]
[2018-04-08] MEDS ORDERED: CELE100C79 PO (12:03)
== END 2018-04-09 ==
LOC: ONC 10:00
PROVIDERS: ATTEND Internal Medicine
DX: C61 Malignant neoplasm of prostate (principal); C79.51 Secondary malignant neoplasm of bone; Z23 Encounter for immunization; M19.90 Unspecified osteoarthritis, unspecified site; G20 Parkinson's disease; R29.6 Repeated falls
CPT/HCPCS: 36415; 84153; 85025; 90471; G0463; Q2037; 82040; 82247; 82310; 82374; 82435; 82565; 82947; 84075; 84132; 84155; 84295; 84450; 84460; 84520; 90674; 99212

== ENCOUNTER → 2018-05-28 | Outpatient (CLI) | payer MEDICARE, OTHER ==
[2014-02-09 16:18] VITALS: BMI 31.9
[~2018-05-28] MED LIST changes: -INFLUENZA VIRUS VAC 0.5ML SYR IM ONLY ONE; +PRED-1 PO
--- NOTE | 2018-05-28 13:46 | RADIOLOGY IMAGING REPORT ---
FACILITY: [facility] PATIENT NAME: Wilber Iglesias : 1940 MR: [id number] V: [id number] EXAM DATE: ORDERING PHYSICIAN: MAN GAUTAM TECHNOLOGIST: [place] [facility] [place] Patient: Wilber Iglesias : 1940 Visit/Account:[id number] Date of Sevice: 05/28/2018 NM BONE SCAN COMPLETE HISTORY: Prostate cancer COMPARISON: 06/07/2017. TECHNIQUE: 24.9 mCi technetium 99m MDP was injected intravenously. Delayed anterior and posterior wh ole body gamma camera images were obtained. Additional gamma camera images: Additional images obtained through the neck. FINDINGS: Bone radiotracer activity: Prior uptake at multiple adjacent right ribs has resolved. Decreasing up take at the right distal clavicle. New focus of uptake at the left inferior pubic ramus. There are 2 foci of uptake at the right knee, one of which is new. Extraosseous radiotracer activity: Normal Renal and urinary collecting system activity: Normal. IMPRESSION: 1. New focus of uptake within the left inferior pubic ramus. Metastatic disease not excluded. Phil mmend MRI with and without contrast for further evaluation. 2. There is one new focus of uptake at the right knee which could be degenerative or metastatic. Re commend x-ray as an initial step. 3. Prior uptake at multiple adjacent right ribs has resolved. Decreasing uptake at the distal right clavicle. Both these findings are likely posttraumatic. Report Dictated By: Shane Hunter MD at 05/28/2018 1:27 PM Report E-Signed By: Shane Hunter MD at 05/28/2018 1:32 PM WSN:[id number]
== END ==
LOC: RAD 00:45
PROVIDERS: ATTEND Internal Medicine
DX: C61 Malignant neoplasm of prostate (principal)
CPT/HCPCS: 78306; A9503

== ENCOUNTER 2018-06-04 09:47 | Outpatient (RCR) | payer MEDICARE, OTHER ==
[2014-02-09 16:18] VITALS: Wt 66.5 kg
[2018-04-11 10:18] VITALS: BP 112/69
[2018-04-11 10:24] LABS: PLATELET COUNT, AUTOMATED 172 K/uL (150-450)
[2018-04-15 10:20] VITALS: BP 118/73
--- NOTE | 2018-04-16 03:43 | SCHUST[facility] ONCOLOGY NOTE ---
EVENT DATE: April 15, 2018 CHIEF COMPLAINT/REASON FOR VISIT Mr. Iglesias is a very pleasant 77-year-old gentleman here for followup with metastatic prostate cancer, complaining of right shoulder pain and continued Parkinson disease. HISTORY OF PRESENT ILLNESS Wilber returns. He is seen for his near-monthly followup for metastatic prostate cancer. His oncology history is outlined below, and he has received multiple treatments. Enzalutamide was added on January 14, 2018, due to an increased PSA. His PSA has improved from 32 down to 20 with this therapy after three months, which is excellent. In the past, he has had some issues with diarrhea and constipation as well as urinary issues, but he does not complain of these today. He has not had any falls this month, but did in the fall, when he was not using his cane regularly. He had a fall and injury to his right shoulder, and that is likely the source of his pain; however, given his prostate cancer, I would like to get an x-ray. It has been a year since his last imaging, and we plan to get imaging of the shoulder, and then we would like to get a bone scan in approximately three months as well. His continues to be ill, and he has two helpers including a hospital pharmacy technician and a nearby girl from a ranch that are helping him on a near-daily basis. He feels that he is maintaining okay right now. ONCOLOGY HISTORY The patient has known metastatic prostate cancer to bone. He was originally diagnosed in February 2005 with [place] 8 poorly differentiated malignancy and was given six months of Lupron with external beam radiation therapy at a dose of 7560 cGy. He developed bone metastases in 2009 and received palliation with radiation to the spine at 3750 cGy. He tolerated this well. He then was controlled with Lupron and Casodex starting in 2009. He developed an elevation of his PSA in July 2015 and was started on Zytiga and prednisone. His PSA edita to 9 and then leveled off. It increased then in the summer of 2015 to 12.2, and Provenge was added in the fall of 2015. He completed his three treatments. He continues on Lupron and the Casodex. Xtandi was added on January 14, 2018 due to increasing PSA. PAST MEDICAL HISTORY 1. Prostate cancer, metastatic. 2. Parkinsonism. 3. Tardive dyskinesia. 4. Osteoarthritis. SOCIAL HISTORY The patient is and has presented by himself today. He has one adult daughter here in [place]. FAMILY HISTORY Remarkable for a sibling who from leukemia, otherwise negative. MEDICATIONS 1. Enzalutamide 40 mg four capsules daily. 2. Advair. 3. Carbidopa/levodopa. 4. Vitamin D3. 5. Lexapro 10 mg daily. 6. Joint Health tablet. 7. Lupron under the direction of Dr. Lobato. 8. Casodex 50 mg daily. 9. Magnesium oxide. ALLERGIES No known drug allergies. REVIEW OF SYSTEMS CONSTITUTIONAL: No fevers, chills, or significant weight change. HEENT: No headache or vision changes. CARDIOVASCULAR: No chest pain, dyspnea on exertion, or edema. RESPIRATORY: No shortness of breath, wheeze, or cough. GASTROINTESTINAL: Positive constipation and diarrhea alternating. GENITOURINARY: He does have some urinary issues, but these are stable currently. Follows with Dr. Lobato. ENDOCRINE: No heat or cold intolerance. PSYCHIATRIC: No anxiety or depression. SKIN: No concerning findings. NEUROLOGIC: Positive Parkinson disease and tremor. Remainder of 14-point review of systems otherwise negative. PHYSICAL EXAMINATION VITAL SIGNS: Blood pressure 118/73, pulse 93, respiratory rate 16, oxygen saturation 95% on room air. Weight 67.4 kg. Pain 2/10, fatigue 3/10. GENERAL: Stable condition, resting comfortably in the chair. HEENT: Normocephalic, atraumatic. CARDIOVASCULAR: Regular rate and rhythm. LUNGS: Clear. ABDOMEN: Soft and nontender. No masses. EXTREMITIES: Without clubbing, cyanosis, or edema. MUSCULOSKELETAL: Limited range of motion of the right shoulder. Did not do full physical exam due to prior trauma and known fracture. No change in his exam. Remainder of physical exam otherwise unremarkable. IMPRESSION/REPORT/PLAN Mr. Iglesias is a pleasant 77-year-old gentleman with the followin. Metastatic prostate cancer, on Lupron, Casodex, and enzalutamide. I plan to add a low dose of prednisone 5 mg. We will assess him with Penny Brar in approximately one month to see if this has been beneficial. If it has, he will need refills. If not, we will discontinue it. 2. Depression. He would like a refill of his Lexapro, and I can help Chloe Florian with that today. Would like him to follow up with her prior to the next refill, though. 3. Parkinson disease with tardive dyskinesia. 4. Right shoulder pain, likely due to fracture and fall as opposed to prostate cancer, but due to imaging later this spring. We will see him after that imaging. Answered all of his questions today. BILLING Return visit level 4. Total time 30 minutes, counseling time 20. KELD
--- NOTE | 2018-04-24 11:10 | RADIOLOGY IMAGING REPORT ---
FACILITY: [facility] PATIENT NAME: Wilber Iglesias : 1940 MR: [id number] V: [id number] EXAM DATE: ORDERING PHYSICIAN: MAN GAUTAM TECHNOLOGIST: Location: [facility] Patient: Wilber Iglesias : 1940 Visit/Account:[id number] Date of Sevice: 04/24/2018 Exam type: 3 views right shoulder History: Fall, history of prostate cancer Comparison: 04/13/2017. Findings: There is no definitive acute fracture of the right shoulder. Healed distal right clavicular fracture is noted with mild inferior angulation distally and degenerative changes. Healed fractures of the r ight 2nd through 5th ribs are noted. Significant degenerative changes right glenohumeral joint are n oted with a large inferior osteophyte extending from the right humeral head. Small lucencies in the right humerus are not changed and may be due to osteopenia. IMPRESSION: 1. No acute fracture of the right shoulder. 2. Healed fractures of the distal right clavicle and right 2nd through 5th ribs are noted. 3. Significant osteoarthritis of the right shoulder. Report Dictated By: Alvaro Alexandre MD at 04/24/2018 11:00 AM Report E-Signed By: Alvaro Alexandre MD at 04/24/2018 11:06 AM WSN:[id number]
[2018-06-03 09:58] VITALS: BP 116/71
[2018-06-03 10:17] LABS: PLATELET COUNT, AUTOMATED 195 K/uL (150-450)
[2018-06-04 10:21] VITALS: BP 105/72
--- NOTE | 2018-06-06 04:26 | ONCOLOGY FOLLOW UP NOTE ---
EVENT DATE: June 04, 2018 CHIEF COMPLAINT Followup for metastatic prostate cancer. HISTORY OF PRESENT ILLNESS Patient is a 77-year-old male who was seen today in followup. He continues on enzalutamide, which he is tolerating fairly well. He has ongoing right shoulder discomfort. Dr. Hidalgo started him on prednisone, but he has not found this to be very helpful. He does have significantly decreased range of motion. PSA has decreased from 31.1 at start of treatment to 20.4. He has had recent falls at home. He describes being fatigued and "not having much enthusiasm for anything anymore." He underwent bone scan on 05/28/18. ONCOLOGY HISTORY The patient has known metastatic prostate cancer to bone. He was originally diagnosed in February 2005 with [place] 8 poorly differentiated malignancy and was given six months of Lupron with external beam radiation therapy at a dose of 7560 cGy. He developed bone metastases in 2009 and received palliation with radiation to the spine at 3750 cGy. He tolerated this well. He then was controlled with Lupron and Casodex starting in 2009. He developed an elevation of his PSA in July 2015 and was started on Zytiga and prednisone. His PSA edita to 9 and then leveled off. It increased then in the summer of 2015 to 12.2, and Provenge was added in the fall of 2015. He completed his three treatments. He continues on Lupron and the Casodex. Xtandi was added on January 14, 2018, due to increasing PSA. PAST MEDICAL HISTORY 1. Prostate cancer, metastatic. 2. Parkinsonism. 3. Tardive dyskinesia. 4. Osteoarthritis. SOCIAL HISTORY The patient is and has presented by himself today. He has one adult daughter here in [place]. FAMILY HISTORY Remarkable for a sibling who from leukemia, otherwise negative. MEDICATIONS 1. Enzalutamide 40 mg four capsules daily. 2. Advair. 3. Carbidopa/levodopa. 4. Vitamin D3. 5. Lexapro 10 mg daily. 6. Joint Health tablet. 7. Lupron under the direction of Dr. Lobato. 8. Casodex 50 mg daily. 9. Magnesium oxide. ALLERGIES No known drug allergies. REVIEW OF SYSTEMS A 12-point review of systems is performed and is negative except as stated above. PHYSICAL EXAMINATION VITAL SIGNS: Weight 65.5 kg, BP 105/72, P 84, R 16, temperature 97.2, O2 sat 90%. GENERAL: Patient is a well-developed but fatigued-appearing male in no acute distress. He ambulates without assistive device. HEAD: Atraumatic, normocephalic. EYES: Sclerae, anicteric. MOUTH: Moist mucous membranes. NECK: Supple. No palpable adenopathy. LUNGS: Clear bilaterally. CARDIOVASCULAR: Heart rate regular, 84 per minute, without murmur, S3 or S4. EXTREMITIES: No pedal edema. Significant decreased range of motion in his right shoulder. SKIN: Mild bruising noted. NEUROLOGIC: Bilateral tremor noted, but otherwise nonfocal. LABORATORY CBC on 06/03/18 showed a WBC of 4.8, hemoglobin 14.6, hematocrit 44.2, platelets 195,000. CMP is within normal limits. PSA had decreased to 20.4. IMPRESSION AND PLAN The patient is a 77-year-old male who is being followed for metastatic prostate cancer. Please see Oncology History above. Currently on enzalutamide, Lupron, and Casodex. 1. Metastatic prostate cancer. PSA has decreased from 31.1 to 20.4. He is tolerating the enzalutamide fairly well. He will continue on Casodex and received Lupron through Dr. Lobato. 2. Right shoulder pain. Ongoing after a fall. 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 He has been seen at [facility], and therapy was recommended, although he did not find this very helpful. This is his biggest complaint, as it causes significant discomfort and limits his activities of daily living. He is not interested in going back to see Orthopedics. Dr. Hidalgo started him on prednisone 5 mg daily, but he has not noted much of a difference. I recommended he discontinue this. He has chronic diffuse osteoarthritis. 3. Response. Bone scan on 05/28/18 showed a new focus of uptake in the left inferior pubic ramus. Degeneration was noted in his right knee. The previous uptake in multiple ribs had resolved, likely traumatic. I reviewed this with Dr. Hunter, radiation oncologist. He recommended MRI of the pelvis. However, Mr. Iglesias defers at this time, as he is not having pain in this area. Will continue to follow. 4. Parkinsonism. Continue carbidopa-levodopa. 5. Follow up for lab (CBC, CMP, and PSA) on 07/19/18. 6. Follow up with Dr. Hidalgo on 07/22/18 for continued care, earlier if there is a problem. DEVENDRA
== END 2018-07-09 ==
LOC: ONC 09:47
PROVIDERS: ATTEND Internal Medicine
DX: C61 Malignant neoplasm of prostate (principal); C79.51 Secondary malignant neoplasm of bone; Z23 Encounter for immunization; M19.90 Unspecified osteoarthritis, unspecified site; G20 Parkinson's disease; R29.6 Repeated falls; Z92.3 Personal history of irradiation; F32.9 Major depressive disorder, single episode, unspecified; M25.511 Pain in right shoulder; M19.011 Primary osteoarthritis, right shoulder
CPT/HCPCS: 36415; 84153; 85025; G0463; 82040; 82247; 82310; 82374; 82435; 82565; 82947; 84075; 84132; 84155; 84295; 84450; 84460; 84520; 99212

== ENCOUNTER 2018-09-24 08:26 | Outpatient (RCR) | payer MEDICARE, OTHER ==
[2014-02-09 16:18] VITALS: Wt 65.1 kg
[2018-07-19 10:01] VITALS: BP 100/69
[2018-07-19 10:16] LABS: PLATELET COUNT, AUTOMATED 208 K/uL (150-450)
[2018-07-22 11:42] VITALS: BP 112/72
--- NOTE | 2018-07-23 05:15 | ONCOLOGY FOLLOW UP NOTE ---
EVENT DATE: July 22, 2018 CHIEF COMPLAINT/REASON FOR VISIT Mr. Iglesias is a pleasant 77-year-old gentleman with metastatic prostate cancer, here for followup with a slowly rising PSA, on enzalutamide, Casodex, Lupron. HISTORY OF PRESENT ILLNESS Wilber returns. He is seen for his [id number] followup for metastatic prostate cancer. He has had multiple treatments. Enzalutamide was added on January 14, 2018, due to increasing PSA. His PSA improved from 32 down to 20, but is now slowly rising again. His bone scan was done, and he has one to two lesions of concern, but he has no pain in these areas. We will watch these closely. We discussed how we could consider radiation therapy if the pain worsens in any way. He has noted no pain there. He only has pain in his right shoulder where he had a fall and injury. We do not see any evidence of prostate cancer in that area. His continues to be ill, and he has two helpers helping him at home. He feels that he is maintaining okay right now. ONCOLOGY HISTORY The patient has known metastatic prostate cancer to bone. He was originally diagnosed in February 2005 with [place] 8 poorly differentiated malignancy and was given six months of Lupron with external beam radiation therapy at a dose of 7560 cGy. He developed bone metastases in 2009 and received palliation with radiation to the spine at 3750 cGy. He tolerated this well. He then was controlled with Lupron and Casodex starting in 2009. He developed an elevation of his PSA in July 2015 and was started on Zytiga and prednisone. His PSA edita to 9 and then leveled off. It increased then in the summer of 2015 to 12.2, and Provenge was added in the fall of 2015. He completed his three treatments. He continues on Lupron and the Casodex. Xtandi was added on January 14, 2018 due to increasing PSA. PAST MEDICAL HISTORY 1. Prostate cancer, metastatic. 2. Parkinsonism. 3. Tardive dyskinesia. 4. Osteoarthritis. SOCIAL HISTORY The patient is and has presented by himself today. He has one adult daughter here in [place]. FAMILY HISTORY Remarkable for a sibling who from leukemia, otherwise negative. MEDICATIONS 1. Enzalutamide 40 mg four capsules daily. 2. Advair. 3. Carbidopa/levodopa. 4. Vitamin D3. 5. Lexapro 10 mg daily. 6. Joint Health tablet. 7. Lupron under the direction of Dr. Lobato. 8. Casodex 50 mg daily. 9. Magnesium oxide. ALLERGIES No known drug allergies. REVIEW OF SYSTEMS CONSTITUTIONAL: No fevers, chills, or significant weight change. HEENT: No headache or vision changes. CARDIOVASCULAR: No chest pain, dyspnea on exertion, or edema. RESPIRATORY: No shortness of breath, wheeze, or cough. GASTROINTESTINAL: Positive constipation and diarrhea alternating. GENITOURINARY: He does have some urinary issues, but these are stable currently. Follows with Dr. Lobato. ENDOCRINE: No heat or cold intolerance. PSYCHIATRIC: No anxiety or depression. SKIN: No concerning findings. NEUROLOGIC: Positive Parkinson disease and tremor. Remainder of 14-point review of systems otherwise negative. PHYSICAL EXAMINATION VITAL SIGNS: Blood pressure 112/72, pulse 87, respiratory rate 16, temperature 97.1 Fahrenheit, oxygen saturation 90% on room air. Weight 66.9 kg, pain 4/10, fatigue 3/10. Moderate fall risk. GENERAL: Stable condition, resting comfortably in the chair. NEUROLOGIC: He has positive Parkinson disease and a tremor that is again noticed today. It has been much worse in the past when he was not taking his medications properly. He occasionally skips doses due to cost. HEENT: Normocephalic, atraumatic. CARDIOVASCULAR: Regular rate and rhythm. LUNGS: Clear. ABDOMEN: Soft. Remainder of physical exam otherwise unremarkable. IMPRESSION/REPORT/PLAN Mr. Iglesias is a pleasant 77-year-old gentleman with the followin. Metastatic prostate cancer, on Lupron, Casodex, and enzalutamide. We did not see improvement with the addition of low dose of prednisone. He again states today that he is not interested in chemotherapy. We have a limited number of treatment options for him. He has already received Provenge in the fall of 2016. Without chemotherapy, I would consider increasing his Casodex by one pill per day. He is getting this prescribed through Dr. Lobato, and we will confirm that he has been compliant with this. He believes he is taking it, he states. Would like to see him back in six weeks to see if there is any improvement after the slightly higher dose of Casodex. We will repeat the bone scan in the later summer/early fall. If these lesions are worsening, we may need to consider radiation. If he has any pain, we will need to reevaluate and consider radiation. 2. Depression. 3. Parkinson disease with tardive dyskinesia. 4. Right shoulder pain due to fracture and fall as opposed to prostate cancer. Answered all of his many questions today. BILLING Return visit level 4. Total time 30 minutes, counseling time 25. MTDD
[2018-08-23 10:37] VITALS: BP 113/71
[2018-08-23 10:45] LABS: PLATELET COUNT, AUTOMATED 158 K/uL (150-450)
[2018-08-26 09:36] VITALS: BP 103/62
--- NOTE | 2018-08-27 13:54 | ONCOLOGY FOLLOW UP NOTE ---
EVENT DATE: August 26, 2018 CHIEF COMPLAINT/REASON FOR VISIT Patient is here for ongoing followup regarding his metastatic prostate carcinoma. HISTORY OF PRESENT ILLNESS Mr. Iglesias returns today for ongoing followup. We are seeing him every six weeks for followup for his metastatic prostate cancer. He has received multiple prior lines of therapy. Most recently, we placed him on enzalutamide on January 14, 2018, secondary to rising PSA. His PSA improved from 32 down to 20 but this began to slowly rise again. His last bone scan was done on May 28, 2018, and there were two lesions of concern, although he did not have any pain in those areas. We continue to watch these. He is aware of our plan to consider radiation therapy if pain were to worsen in any way. Currently, he remains on Lupron, which he receives semiannually through his urologist, Dr. Lobato. He is also on Casodex and at last visit was increased up to 100 mg or two tablets daily. He continues to have some pain in the right shoulder, where he had a fall and injury approximately one year ago. There has not been any evidence of prostate cancer in that area. He tells me he continues to have difficulty with his Parkinson's and is currently waiting a refill on his medications through his neurologist. His continues to be ill and he has two helpers/students that help him at home. He believes that he is maintaining fairly well right now, although tells me that he thinks he is going to give up driving in the near future when his license is up for renewal. Again, he has not had any fall since June of this year. ONCOLOGY HISTORY 1. The patient has known metastatic prostate cancer to bone. He was originally diagnosed in February 2005 with [place] 8 poorly differentiated malignancy and was given six months of Lupron with external beam radiation therapy at a dose of 7560 cGy. He developed bone metastases in 2009 and received palliation with radiation to the spine at 3750 cGy. He tolerated this well. He then was controlled with Lupron and Casodex starting in 2009. He developed an elevation of his PSA in July 2015 and was started on Zytiga and prednisone. His PSA edita to 9 and then leveled off. It increased then in the summer of 2015 to 12.2, and Provenge was added in the fall of 2015. He completed his three treatments. He continues on Lupron and the Casodex. Xtandi was added on January 14, 2018 due to increasing PSA. Most recent bone scan done on May 28, 2018, revealed a new focus of uptake within the left inferior pubic ramus, metastatic disease not excluded. Recommend MRI with and without contrast for further reevaluation. There is one new focus of uptake at the right knee, which could be degenerative or metastatic. Recommend x-ray as an initial step. Prior uptake at multiple adjacent right ribs has resolved. Decrease in uptake at the distal right clavicle. Both these findings are likely posttraumatic. 2. Last CT scan was a chest, abdomen and pelvis CT done on June 07, 2017. Results at that time revealed a small amount of air space consolidation to the lower left lateral thorax, which could represent an area of scarring or atelectasis. There was a partial hepatic resection. Postsurgical changes from cholecystectomy. Nonobstructive right-sided nephrolithiasis. Left renal cyst appeared smaller. Bladder wall is mildly thickened. The prostate gland is mildly enlarged, impinging upon the floor of the urinary bladder, which appears heterogenous. Diverticulosis left-sided colon, although no CT evidence of acute diverticulitis. PAST MEDICAL HISTORY 1. Prostate cancer, metastatic. 2. Parkinsonism. 3. Tardive dyskinesia. 4. Osteoarthritis. SOCIAL HISTORY The patient is and has presented by himself today. He has one adult daughter here in [place]. FAMILY HISTORY Remarkable for a sibling who from leukemia, otherwise negative. MEDICATIONS 1. Enzalutamide 40 mg four capsules daily. 2. Advair. 3. Carbidopa/levodopa. 4. Vitamin D3. 5. Lexapro 10 mg daily. 6. Joint Health tablet. 7. Lupron under the direction of Dr. Lobato. 8. Casodex 100 mg total daily, 50 mg tablets, two per day. 9. Magnesium oxide. ALLERGIES No known drug allergies. REVIEW OF SYSTEMS CONSTITUTIONAL: Wilber denies any recent fevers, chills or night sweats. No recent weight change. He believes that his appetite is good and believes weight is stable. HEENT: No vision changes. No headache. No tinnitus. No mouth sores. No dysphagia or odynophagia. CARDIOVASCULAR: No chest pain, syncope or presyncope. RESPIRATORY: No shortness of breath, cough, wheezes or sputum production. No hemoptysis. GASTROINTESTINAL: No abdominal pain. He reports no nausea or vomiting at all. He continues to have some constipation, diarrhea, which alternates. This is stable. He reports good appetite and is eating three full meals per day and occasional snacking with popcorn. GENITOURINARY: He does have some urinary issues, which are stable currently. He has nocturia stable x3. He follows up with Dr. Lobato. ENDOCRINE: No heat or cold intolerance. He reports chronic fatigue, which may have increased recently. PSYCHIATRIC: He denies any severe anxiety, severe depression, suicidal or homicidal ideation. SKIN: He denies any rash. No lumps or bumps. NEUROLOGIC: Positive for Parkinson's disease and tremor. He reports that this is managed by Dr. Busby. MUSCULOSKELETAL: Patient continues to have some right shoulder pain from a fall and injury approximately one year ago. He denies any new focal areas of bony type pain. Remainder of 12-point review of systems is performed today and is otherwise negative. PHYSICAL EXAMINATION VITAL SIGNS: Weight 143.2 pounds, down 3.9 pounds from last visit. T 97.2, P 90, R 16, BP 103/62, oxygen saturation 93% room air. Currently rates fatigue level at "3/10". Currently rates pain level at "1/10". GENERAL: This is a pleasant, elderly 77-year old male who appears well- hydrated, well-nourished and is in no acute distress. He is a moderate fall risk. HEENT: Atraumatic, normocephalic. EYES: Sclerae anicteric. NECK: Supple. No lymphadenopathy. NEURO: Positive for Parkinson's disease and tremor noticed again bilaterally, worse on the left. It has been much worse in the past when he was not taking his medications properly. In the past, he reported that he occasionally skips doses to cost. He is currently awaiting refill through Dr. Busby. CARDIOVASCULAR: Regular rate and rhythm. LUNGS: Clear, diminished at the bases bilaterally. No focal findings. ABDOMEN: Soft, nontender, nondistended. Bowel sounds positive x4. PSYCH: Mood and affect are appropriate. MUSCULOSKELETAL: Ambulation and gait are slow but otherwise stable. He does have some right shoulder pain. LABORATORY STUDIES CBC on August 23, 2018: WBC 4.7, ANC 3.1, hemoglobin 13.5, hematocrit 40.9%, platelets 158,000. CMP on the same day: Unremarkable with exception of mildly elevated BUN at 24 with normal serum creatinine of 0.70. Total protein normal at 7.0, normal albumin of 4.3. PSA on August 23, 2018: Elevated up to 30.3. Previously, this was 26.3 on July 19, 2018, and prior to that was 21.4 on June 03, 2018. IMAGING 1. Total bone scan at [facility] on May 28, 2018: * New focus of uptake in the left inferior pubic ramus. Metastatic disease not excluded. Recommend MRI with and without contrast for further evaluation. * There is one new focus of uptake at the right knee, which could be degenerative or metastatic. Recommend x-ray as initial step. * Prior uptake at multiple adjacent right ribs has resolved. Decrease in uptake at the distal right clavicle. Both these findings are likely posttraumatic. 2. CT chest, abdomen and pelvis with and without contrast at [facility] on June 07, 2017: * There is a small amount of airspace consolidation in the lower left lateral thorax, which may represent an area of scarring or atelectasis. * There has been a partial hepatic resection. * Postsurgical changes from a cholecystectomy. * Nonobstructing right-sided nephrolithiasis. * Left renal cyst appears smaller. * Bladder wall is mildly thickened. The prostate gland is mildly enlarged, impinging upon the floor of the urinary bladder, which appears heterogenous. * Diverticulosis, left-sided colon, although no CT evidence of acute diverticulitis. IMPRESSION AND PLAN Mr. Iglesias is a pleasant 77-year-old gentleman with the followin. Metastatic prostate cancer, on Lupron, Casodex, and enzalutamide. Currently, is on Lupron semiannually through Dr. Lobato. Patient reports he will be due for this in a few days. He remains on enzalutamide and is tolerating this well. LFTs from last week are normal. His Casodex is currently up to 100 mg or two tablets daily and I explained to patient that we can still increase this up to three tablets daily, for a total of 150 mg. I discussed this with Dr. Hidalgo in the clinic today. There is significant data and this is being done quite a bit in [place]. We will send in a new prescription for that today. Again, we have explained that he is take three tablets of Casodex for a total of 150 mg in addition to his current enzalutamide dose and his Lupron semiannually. He again tells me today that he is not interested in chemotherapy and, thus, we have a limited number of treatment options as he has been on multiple lines of therapy in the past. He has received Provenge in the fall of 2016. 2. Prostrate specific antigen: Reviewed rising PSA with patient, currently up to 30.3, up 4 points from six weeks ago at 26.3. Again, we will increase his Casodex up to 150 mg daily. 3. Imaging: We did plan to repeat a bone scan sometime in the late summer/early fall but due to rising prostate specific antigen, I have ordered a repeat bone scan as well as repeat CT chest, abdomen and pelvis to be done in the next three to four weeks. I have asked the patient to then follow up with us in six weeks to see Dr. Hidalgo and we can review those image results at that time. 4. History of Parkinson's disease with tardive dyskinesia: Reminded patient to try and take medications daily as scheduled. We will try and help him reach his neurologist for refill. He is not completely out of this yet but will be soon. 5. He also has a history of depression, being managed by his PCP. 6. Right shoulder pain secondary to fracture and fall as opposed to prostate cancer: We will continue to monitor this. He does still have some shoulder pain, although no new pain. 7. Patient will return to clinic in six weeks as mentioned above. MTDD
[~2018-09-24 08:26] MED LIST changes: +DEXTROSE 5%(*) 100 ML BAG 100 ML IVPB PRN; +LIDOCAINE/SOD BICARB 8.4% SYR ID PRN; +NS(*) 0.9% 100 ML BAG 100 ML IVPB PRN; +TRAM-420 PO
[2018-09-24 08:32] VITALS: BP 105/58
[2018-09-24 08:53] LABS: PLATELET COUNT, AUTOMATED 179 K/uL (150-450)
--- NOTE | 2018-09-24 11:11 | RADIOLOGY IMAGING REPORT ---
FACILITY: [facility] PATIENT NAME: Wilber Iglesias : 1940 MR: [id number] V: [id number] EXAM DATE: ORDERING PHYSICIAN: MAN GAUTAM TECHNOLOGIST: [place] [facility] [place] Wilber Iglesias : 1940 Visit/Account:[id number] Date of Sevice: 09/24/2018 ADDENDUM #1 ADDENDUM: Note, following review of whole body bone scan performed subsequent to this CT, note is made of subtl e asymmetric sclerosis involving the left inferior pubic ramus and consistent with metastatic disease (-). Report Dictated By: Nicolas Shin MD at 09/24/2018 1:20 PM Report E-Signed By: Nicolas Shin MD at 09/24/2018 1:[address] CHEST ABDOMEN PELVIS W & W/O HISTORY: Prostate cancer. TECHNIQUE: CT chest, abdomen and pelvis without and with intravenous contrast. One of the following dose optimization techniques was utilized in the performance of this exam: Autom ated exposure control; adjustment of the mA and/or kV according to the patient's size; or use of an i terative reconstruction technique. Specific details can be referenced in the facility's radiology C T exam operational policy. CONTRAST: 75 mL Isovue-370 IV COMPARISON: 09/24/2018 06/07/2017 FINDINGS: CHEST: Heart/vessels: Atherosclerotic calcifications aorta and its vessels including coronary arteries. Mediastinum: Negative. Lymph nodes: No adenopathy. Lungs/pleura: New 6 mm solid nodule superior segment right lower lobe (3/34). New 4 mm nodule super ior segment left lower lobe (3/42). Stable micronodule along left fissure (3/45) most consistent wit h. Fissural lymph node. Mild bibasilar atelectasis. No infiltrate or pleural fluid. Bones/soft tissues: Subcentimeter right thyroid nodule not necessitating further evaluation. Degene rative changes left greater than right glenohumeral joints. Several chronic and healed right rib fra ctures. Disc degenerative changes thoracic spine. No suspicious osseous lesion. ABDOMEN/PELVIS: Hepatobiliary: Liver unremarkable. Gallbladder surgically absent. Bile ducts nondistended. Spleen: Negative; very small accessory splenule superior. Adrenals: Negative. Pancreas: Mildly atrophic. Kidneys/: Small cortical cyst containing a thin septal calcification upper pole left kidney. Smal l focus of mild cortical scarring posterior lower pole left kidney. Nonobstructing 6 mm stone mid ri ght kidney. Mild urinary bladder wall thickening and trabeculation, likely hypertrophy related to ur inary bladder outlet obstruction. Asymmetric prominence of the left posterior lateral prostate, poss ibly representing site of patient's reported prostate malignancy but grossly unchanged () GI: Moderately severe left hemicolonic diverticulosis. Vessels/spaces/nodes: Retroaortic left renal vein, normal variant. Mild to moderate atherosclerosis . No adenopathy. Trace free pelvic fluid, new from prior exam. Bones/soft tissues: Very small bilateral fat-containing inguinal hernias. Degenerative changes lumb ar spine, sacroiliac joints and hips. Stable sclerotic focus right femoral head/neck junction, likel y bone island. No suspicious osseous lesion. IMPRESSION: 1. Asymmetric prominence of the left posterior lateral prostate, likely corresponding with patient's site of reported prostate malignancy but grossly unchanged. 2. New 6 mm right lower and 4 mm left lower lobe pulmonary nodules, potentially metastatic and warra nting CT follow-up. 3. No adenopathy, suspicious osseous lesion or other findings of concern for metastatic disease to t he chest, abdomen or pelvis. 4. Chronic and/or benign-appearing changes detailed above. Report Dictated By: Nicolas Shin MD at 09/24/2018 10:45 AM Report E-Signed By: Nicolas Shin MD at 09/24/2018 11:06 AM WSN:[email or web address]
--- NOTE | 2018-09-24 13:25 | RADIOLOGY IMAGING REPORT ---
FACILITY: [facility] PATIENT NAME: Wilber Iglesias : 1940 MR: [id number] V: [id number] EXAM DATE: ORDERING PHYSICIAN: MAN GAUTAM TECHNOLOGIST: Location: [facility] [place] Patient: Wilber Iglesias : 1940 Visit/Account:[id number] Date of Sevice: 09/24/2018 NM BONE SCAN COMPLETE HISTORY: Prostate cancer. TECHNIQUE: 24.0 mCi technetium 99m HDP was injected intravenously. Delayed anterior and posterior wh ole body gamma camera images were obtained. Additional gamma camera images: Skull, cervical spine and pelvis. COMPARISON: 05/28/2018 FINDINGS: Bone radiotracer activity: * Mild asymmetric activity right mandible, unchanged and likely inflammatory. * Moderate asymmetric activity right acromioclavicular and glenohumeral as well as sternoclavicular joints, unchanged and likely degenerative. * Moderately intense focal activity left inferior pubic ramus, unchanged but corresponding with subt le asymmetric sclerosis on recent CT and metastatic disease. * New subtle asymmetric activity adjacent the lateral margin right greater trochanter and inflammato ry, corresponding with enthesophyte on recent CT. * Degenerative uptake within the knees, feet and right great toe. Extraosseous radiotracer activity: Unremarkable. Renal and urinary collecting system activity: Unremarkable. IMPRESSION: Solitary focus of osseous metastatic disease involving the left inferior pubic ramus, grossly unchang ed. Other sites of chronic and/or otherwise benign-appearing radiopharmaceutical uptake detailed abo ve. Report Dictated By: Nicolas Shin MD at 09/24/2018 1:10 PM Report E-Signed By: Nicolas Shin MD at 09/24/2018 1:20 PM WSN:[email or web address]
[2018-10-14] MEDS ORDERED: DICL100G39 TOP (09:55)
--- NOTE | 2018-10-15 12:23 | ONCOLOGY FOLLOW UP NOTE ---
EVENT DATE: October 14, 2018 CHIEF COMPLAINT Followup for metastatic prostate cancer. HISTORY OF PRESENT ILLNESS Patient is a 77-year-old male who was seen today in followup. He continues on maximum dose of Casodex 150 mg daily as well as Lupron under the direction of Dr Lobato. Overall, he feels he is doing well but continues to have some falls. He describes some frequency and urgency as well as urinary incontinence at night. He has an appointment with Dr. Lobato in the near future and will discuss this with him. We reviewed his bone scan and CT scan. His bony pain is located in his shoulder, which was injured approximately one year ago. He denies any other new complaints. ONCOLOGY HISTORY The patient has known metastatic prostate cancer to bone. He was originally diagnosed in February 2005 with [place] 8 poorly differentiated malignancy and was given six months of Lupron with external beam radiation therapy at a dose of 7560 cGy. He developed bone metastases in 2009 and received palliation with radiation to the spine at 3750 cGy. He tolerated this well. He then was controlled with Lupron and Casodex starting in 2009. He developed an elevation of his PSA in July 2015 and was started on Zytiga and prednisone. His PSA edita to 9 and then leveled off. It increased then in the summer of 2015 to 12.2, and Provenge was added in the fall of 2015. He completed his three treatments. He continues on Lupron and the Casodex. Xtandi was added on January 14, 2018, due to increasing PSA. He continues on Lupron, enzalutamide and Casodex. PAST MEDICAL HISTORY 1. Prostate cancer, metastatic. 2. Parkinsonism. 3. Tardive dyskinesia. 4. Osteoarthritis. SOCIAL HISTORY The patient is . He has one adult daughter here in [place]. FAMILY HISTORY Remarkable for a sibling who from leukemia, otherwise negative. MEDICATIONS 1. Enzalutamide 40 mg four capsules daily. 2. Advair. 3. Carbidopa/levodopa. 4. Vitamin D3. 5. Lexapro 10 mg daily. 6. Joint Health tablet. 7. Lupron under the direction of Dr. Lobato. 8. Casodex 50 mg three p.o. daily. 9. Magnesium oxide. ALLERGIES No known drug allergies. REVIEW OF SYSTEMS A 12-point review of systems is performed and is negative except as stated above. PHYSICAL EXAMINATION VITAL SIGNS: Weight 144 pounds. BP 110/67, P 80, R 18, temperature 97.5, O2 sat 93%. GENERAL: Patient is a well-developed, well-nourished male in no acute distress. He ambulates with a cane. HEAD: Normocephalic, atraumatic. EYES: Sclerae anicteric. MOUTH: Moist mucous membranes. No lesions. NECK: Supple. No palpable adenopathy. LUNGS: Clear bilaterally. CARDIOVASCULAR: Heart rate regular, 80 per minute without murmur. EXTREMITIES: No edema. NEUROLOGIC: Bilateral hand tremor noted with some balance issues initially. LABORATORY CBC on September 24, 2018 shows a WBC of 4.6, hemoglobin 13.0, hematocrit 38.6, platelets 179,000. PSA increased from 26.3 in July to 30.3 in August and 38.5 in September. CMP was within normal limits. IMPRESSION The patient is a 77-year-old male with metastatic prostate cancer diagnosed in February 2005. Received Lupron with external beam radiation. Developed bone metastasis in 2009 and received palliative radiation to the spine. Disease was controlled with Lupron and Casodex. PSA was elevated in July 2015 and he began Zytiga and prednisone. As PSA continued to increase, Provenge was added in the fall of 2015. Due to further increase in PSA, enzalutamide was added in January 2018. He continues on Lupron, enzalutamide and Casodex with increase in Casodex dose. PLAN 1. Metastatic prostate cancer. PSA has again risen, now at 38.5. I have reviewed this with Dr. Hidalgo. Mr. Iglesias does not want to pursue any chemotherapy. At this time, he will continue enzalutamide, Lupron under the direction of Dr. Lobato and Casodex 150 mg daily. He is in agreement with this plan. 2. Re-staging. Bone scan on September 24, 2018 showed asymmetric sclerosis of the left inferior pubic ramus but otherwise stable. CT of the chest, abdomen and pelvis showed new onset of 6 mm right lower lobe and 4 mm left lower lobe nodules. We will plan followup CT of the chest in three months. 3. : Patient describes frequency and urgency as well as incontinence at night. He has an appointment with Dr. Lobato in the near future and will discuss this with him. 4. Parkinsonism. Continue carbidopa.levodopa. 5. Followup in six weeks for lab (CBC, CMP and PSA). 6. Followup with Dr. Hidalgo after that for continued care. [facility]
== END 2018-10-16 ==
LOC: SPU 08:26
PROVIDERS: ATTEND Internal Medicine
DX: C61 Malignant neoplasm of prostate (principal); C79.51 Secondary malignant neoplasm of bone; F32.9 Major depressive disorder, single episode, unspecified; G24.01 Drug induced subacute dyskinesia; M25.511 Pain in right shoulder; G20 Parkinson's disease; Z79.818 Long term (current) use of other agents affecting estrogen receptors and estrogen levels
CPT/HCPCS: 36415; 71270; 74178; 78306; 84153; 85025; A9503; G0463; Q9967; 82040; 82247; 82310; 82374; 82435; 82565; 82947; 84075; 84132; 84155; 84295; 84450; 84460; 84520; 99212

== ENCOUNTER 2018-11-08 12:56 | Outpatient (RCR) | payer MEDICARE, OTHER ==
[2014-02-09 16:18] VITALS: BMI 31.9
[~2018-11-08 12:56] MED LIST changes: -DEXTROSE 5%(*) 100 ML BAG 100 ML IVPB PRN; +DICL100G39 TOP; -LIDOCAINE/SOD BICARB 8.4% SYR ID PRN; -NS(*) 0.9% 100 ML BAG 100 ML IVPB PRN
== END 2018-11-11 11:46 | disposition home or self-care (01) ==
LOC: SPU 12:56
PROVIDERS: ATTEND Internal Medicine
DX: Z02.9 Encounter for administrative examinations, unspecified (principal)